=== PATIENT | female | born 1985 | race Caucasian/White ===

== ENCOUNTER → 2016-11-28 | Outpatient (CLI) | payer OTHER ==
[~2016-11-28] MED LIST: FRRS300 PO; PRENTAB26 PO
[2016-11-28 12:48] LABS: URINE APPEARANCE CLEAR (CLEAR); URINE BILIRUBIN NEG (NEG); URINE COLOR YELLOW; URINE NITRITE NEG (NEG); URINE SPECIFIC GRAVITY 1.017 (1.000-1.030); UROBILINOGEN NEG (NEG)
[2016-11-28 12:57] LABS: MANUAL MICROSCOPIC REQUIRED? NO; REVIEW REQ? NO
== END | disposition home or self-care (01) ==
LOC: C.LABSPEC 11:54
PROVIDERS: ATTEND Obstetrics & Gynecology
DX: O09.32 Supervision of pregnancy with insufficient antenatal care, second trimester (principal); Z3A.00 Weeks of gestation of pregnancy not specified

== ENCOUNTER → 2017-01-23 | Outpatient (CLI) | payer OTHER ==
[2017-01-23 15:42] LABS: HEMATOCRIT 30.5 % (37-47)
[2017-01-23 17:28] LABS: URINE APPEARANCE CLEAR (CLEAR); URINE BILIRUBIN NEG (NEG); URINE COLOR YELLOW; URINE EPITHELIAL CELL AUTO >30 /lpf (0-5); URINE NITRITE NEG (NEG); URINE SPECIFIC GRAVITY 1.012 (1.000-1.030); UROBILINOGEN NEG (NEG)
[2017-01-23 17:29] LABS: MANUAL MICROSCOPIC REQUIRED? NO; REVIEW REQ? NO
[2017-01-23 18:16] LABS: GTGD 50 Grams
== END | disposition home or self-care (01) ==
LOC: C.LAB1850 13:54
PROVIDERS: ATTEND Obstetrics & Gynecology
DX: O09.33 Supervision of pregnancy with insufficient antenatal care, third trimester (principal)

== ENCOUNTER → 2017-03-19 | Outpatient (CLI) | payer OTHER | END | disposition home or self-care (01) | LOC: C.LABSPEC 15:16 | PROVIDERS: ATTEND Obstetrics & Gynecology | DX: O09.33 Supervision of pregnancy with insufficient antenatal care, third trimester (principal) ==

== ENCOUNTER → 2017-04-10 | Outpatient (CLI) | payer OTHER ==
[2017-04-10 17:36] LABS: BASO % 0.2 %; BASO ABS # 0.02 K/uL (0-0.2); COMPLETE YES; EOS % 0.3 %; LYMPH % 21.5 %; LYMPH ABS # 2.24 K/uL (1.2-3.4); MEAN CELL VOLUME 83.5 fL (80-100); MEAN CORPUSCULAR HEMOGLOBIN 27.4 pg (25-34); MEAN CORPUSCULAR HGB CONC 32.8 g/dl (32-36); MEAN PLATELET VOLUME 12.8 fL (7.4-10.4); MONO % 8.7 %; NEUT % 68.3 %; PLATELET COUNT 210 K/uL (130-400); RED BLOOD COUNT 4.31 M/uL (4.2-5.4); WHITE BLOOD COUNT 10.43 K/uL (4.8-10.8)
[2017-04-10 17:57] LABS: URINE TOTAL PROTEIN 7.2 mg/dl (0-11.9)
[2017-04-10 17:59] LABS: AST/SGOT 10 U/L (15-37); CREATININE 0.53 mg/dl (0.60-1.20); URIC ACID 3.6 mg/dl (2.6-7.2)
[2017-04-10 18:02] LABS: URINE TOTAL PROTEIN CALC 165.6 mg/24 hr (0-149.1)
[2017-04-10 18:05] LABS: ALT/SGPT 19 U/L (12-78)
== END | disposition home or self-care (01) ==
LOC: C.LAB1850 16:19
PROVIDERS: ATTEND Obstetrics & Gynecology
DX: O16.9 Unspecified maternal hypertension, unspecified trimester (principal); Z3A.00 Weeks of gestation of pregnancy not specified

== ENCOUNTER 2017-04-14 03:06 | Inpatient (IN) | payer OTHER ==
[~2017-04-14] VITALS: Ht 167.6 cm; Wt 90.0 kg
[~2017-04-14 03:06] MED LIST changes: -FRRS300 PO
[2017-04-23] MEDS ORDERED: LACTATED RINGER'S 1000ML 1,000 ML IV PRN (08:19)
[2017-04-23] MEDS ORDERED: PENICILLIN G POTASSIUM IV 6 MU in DEXTROSE 5% 250ML 250 ML IV ONE (08:30)
[2017-04-23 08:38] LABS: HEMATOCRIT 33.6 % (37-47); MEAN CORPUSCULAR HEMOGLOBIN 27.7 pg (25-34); MEAN CORPUSCULAR HGB CONC 33.3 g/dl (32-36); MEAN PLATELET VOLUME 11.7 fL (7.4-10.4); PLATELET COUNT 194 K/uL (130-400); RED BLOOD COUNT 4.05 M/uL (4.2-5.4); WHITE BLOOD COUNT 9.69 K/uL (4.8-10.8)
[2017-04-23] MEDS: LACTATED RINGER'S 1000ML 1,000 ML IV SCH ×4 (08:48→20:49)
[2017-04-23] MEDS ORDERED: LACTATED RINGER'S 1000ML 500 ML IV PRN ×2 (09:11→14:24)
[2017-04-23] MEDS ORDERED: OXYTOCIN 30 UNITS/500ML NSS IV PRN ×2 (09:15→23:15)
[2017-04-23 09:32] VITALS: Ht 167.6 cm; Wt 90.0 kg
[2017-04-23] MEDS: PENICILLIN G POTASSIUM IV 3 MU in DEXTROSE 5% 100ML 100 ML IV PRN ×3 (12:42→20:49)
[2017-04-23] MEDS ORDERED: BUPIVACAINE 0.25% 30 ML VIAL ONE (13:40)
[2017-04-23] MEDS ORDERED: FENTANYL 2MCG/ML ROPIV 1.25MG/ML 100ML BAG EPI ONE (13:41)
[2017-04-23] MEDS ORDERED: EpHEDrine SULFATE INJ 50 MG/ML AMP ONE (13:41)
[2017-04-23] MEDS ORDERED: FENTANYL CITRATE INJ 50 MCG/1 ML 2 ML VIAL ONE (13:41)
[2017-04-23] MEDS ORDERED: ONDANSETRON INJ 2 MG/ML 2 ML VIAL IV PRN (14:30)
[2017-04-23] MEDS ORDERED: FENTANYL 2MCG/ML ROPIV 1.25MG/ML 100ML BAG EPI PRN (14:30)
[2017-04-23] MEDS ORDERED: NALOXONE HCL INJ 0.4 MG/1 ML VIAL/CARP IV PRN (14:30)
[2017-04-23] MEDS ORDERED: NALBUPHINE HCL INJ 10 MG/ML AMP IV PRN (14:30)
[2017-04-23] MEDS ORDERED: EpHEDrine SULFATE INJ 50 MG/ML AMP IV PRN (14:30)
[2017-04-23] MEDS ORDERED: DiphenhydrAMINE HCL 50 MG/ML VIAL IV PRN (14:30)
[2017-04-23] MEDS ORDERED: ACETAMINOPHEN 500 MG TAB PO STA (16:51)
[2017-04-23] MEDS ORDERED: HYDROCORTISONE ACETATE 25 MG SUPP PR PRN (23:15)
[2017-04-23] MEDS ORDERED: IBUPROFEN 600 MG TAB PO PRN (23:15)
[2017-04-23] MEDS ORDERED: ACETAMINOPHEN/CODEINE 300/30MG TAB PO PRN ×2 (23:15)
[2017-04-23] MEDS ORDERED: LANOLIN OINT EXT PRN ×2 (23:15)
[2017-04-23] MEDS ORDERED: BENZOCAINE 20% AER SPR 82.5 GM CAN EXT PRN (23:15)
[2017-04-23] MEDS ORDERED: SUPERCREAM 0.870 % 15GM JAR EXT PRN (23:15)
[2017-04-23] MEDS ORDERED: DIPHTHERIA/TETANUS/PERTUSSIS 0.5 ML SYR/VIAL IM. ONE (23:15)
[2017-04-23] MEDS ORDERED: ACETAMINOPHEN 325 MG TAB PO PRN (23:15)
[2017-04-23] MEDS ORDERED: OXYCODONE/ACETAMINOPHEN 5-325 TAB PO PRN (23:15)
--- NOTE | 2017-04-24 00:47 | DELIVERY SUMMARY ---
DATE OF OPERATION: 04/23/2017 PREOPERATIVE DIAGNOSES: 1. Intrauterine at 41+ weeks. POSTOPERATIVE DIAGNOSES: Same. PROCEDURES: 1. Epidural anesthesia. 2. Amniotomy. 3. External scalp electrode. 4. Pitocin augmentation. 5. Normal spontaneous vaginal delivery. SURGEON: Dr. Hartley. ANESTHESIA: Epidural. ESTIMATED BLOOD LOSS: 300 mL. PROCEDURE: Mark presented to labor and delivery this morning for her postdates induction. She had a Bhatt catheter placed last night, which fell out at midnight. She was 3+, 80%, -2. She underwent Pitocin augmentation and when got into a good contraction pattern, she underwent an epidural anesthesia. Shortly thereafter, she underwent rupture of membranes. This was at 4 cm dilated. As she progressed from 4 to complete, she had intermittent Pitocin augmentation. She had this intermittently shut off when the baby had some deep variables with contractions. The baby had a category 2 strip with good variability and good return to baseline and positive scalp stim. It did have intermittent deep variable/early with contractions. She then progressed to complete and +2 station, labored down for an hour and then pushed for approximately 10 minutes to deliver a viable male infant in MICHAEL presentation. There was no nuchal cord. The nose and mouth were bulb suctioned. The rest of the baby was then delivered without difficulty. The infant was placed on the maternal abdomen for drying and attention. The cord was clamped and cut at 1 minute of life. Cord blood and segment were obtained. Placenta was delivered spontaneously, intact with a 3-vessel cord. Cervix, sulci, perineum and rectum were all examined and found to be intact. Bilateral labial splits in the skin were reapproximated with 4-0 Vicryl and one kkyvze-ey-jdotq suture was placed at the hymenal ring for a bleeding area at 7 o'clock. Hemostasis was obtained with dilute Pitocin and fundal massage. is pending. Mother and baby are doing well at the end of this delivery. I attest to the content of the Intraoperative Record and any orders documented therein. Any exception s are noted below.
[2017-04-24 04:00] VITALS: BP 126/73; PULSE 92; TEMP 37; O2SAT 96
[2017-04-24 06:22] LABS: HEMATOCRIT 30.2 % (37-47)
--- NOTE | 2017-04-24 06:59 | Progress Note ---
Subjective Apr 24, 2017. Subjective conversation w/ patient, physical exam, lab review Ambulation: ambulating normally Voiding: no voiding problems Passing Gas: Yes Diet Tolerance: Regular Diet Lochia: Small Feeding Type: Breast Feeding Pain: controlled Objective Vital Signs Date Time Temp Pulse Resp B/P (MAP) Pulse Ox O2 Delivery O2 Flow Rate FiO2 04/24/17 04:00 37.0 92 18 126/73 (90) 96 Room Air 04/24/17 04:00 Room Air Physical Exam General Appearance: WELL-APPEARING, WD/WN, NO APPARENT DISTRESS Abdomen: non tender, soft Fundus: Firm, Non-Tender, Relation to Umbilicus (at u) Extremities: non-tender, normal inspection, no pedal edema Laboratory Results Last 24 Hours Test 04/23/17 08:29 04/24/17 06:11 White Blood Count 9.69 K/uL Red Blood Count 4.05 M/uL Hemoglobin 11.2 g/dL 9.7 g/dL Hematocrit 33.6 % 30.2 % Mean Corpuscular Volume 83.0 fL Mean Corpuscular Hemoglobin 27.7 pg Mean Corpuscular Hemoglobin Concent 33.3 g/dl RDW Standard Deviation 42.5 fL RDW Coefficient of Variation 14.1 % Platelet Count 194 K/uL Mean Platelet Volume 11.7 fL Assessment and Plan Problem List Medical Problems: (1) Adjustment disorder Status: Acute (2) Anxiety Status: Acute (3) First trimester Status: Acute (4) History of depression Status: Acute (5) Hypokalemia Status: Acute (6) Polysubstance abuse Status: Acute Post- Day#: 1 Continue Routine Care: Doing well. Routine care. We notified CYS as per fax. Patient is aware.
[2017-04-24] MEDS: PRENATAL VITAMIN TAB PO SCH (08:45)
[2017-04-24] MEDS: DOCUSATE SODIUM 100 MG CAP PO SCH ×2 (08:45→20:23)
--- NOTE | 2017-04-24 08:47 | Anesthesia Procedure Note ---
Anesthesia Epidural Removal Nt Date & Time Apr 24, 2017 at 08:47 Vital Signs Pain Intensity: 0.0 Vital Signs Past 12 Hours Date Time Temp Pulse Resp B/P (MAP) Pulse Ox O2 Delivery O2 Flow Rate FiO2 04/24/17 04:00 37.0 92 18 126/73 (90) 96 Room Air 04/24/17 04:00 Room Air Notes Mental Status: alert / awake / arousable, participated in evaluation Nausea / Vomiting: adequately controlled Pain: adequately controlled Airway Patency, RR, SpO2: stable & adequate BP & HR: stable & adequate Hydration State: stable & adequate Neuraxial Anesthesia: was administered, sensory block is resolved Anesthetic Complications: no major complications apparent, pt satisfied with anesthetic care Epidural: removed without complications, with tip intact
[2017-04-24 09:13] VITALS: BP 120/80; PULSE 80; TEMP 37; O2SAT 99
[2017-04-24 12:40] VITALS: BP 121/80; PULSE 96; TEMP 36.9
[2017-04-24 15:55] VITALS: BP 120/71; PULSE 88; TEMP 37.2
[2017-04-24 21:20] VITALS: BP 122/72; PULSE 92; TEMP 37
[2017-04-25 00:20] VITALS: BP 106/58; PULSE 91; TEMP 37.1
--- NOTE | 2017-04-25 07:36 | Progress Note ---
Subjective Apr 25, 2017. Subjective conversation w/ patient, physical exam Ambulation: ambulating normally Voiding: no voiding problems Passing Gas: Yes Diet Tolerance: Regular Diet Lochia: Small Feeding Type: Breast Feeding Review of Systems Constitutional: No fever, No chills, No sweats, No weight loss, No weakness, No fatigue, No problem reported Abdomen: No pain, No nausea, No vomiting, No diarrhea, No constipation, No GI bleeding, No problem reported Female : No see HPI, No dysuria, No urinary frequency, No hematuria, No incontinence, No abnormal vaginal bleeding, No vaginal discharge, No problem reported Objective Vital Signs Date Time Temp Pulse Resp B/P (MAP) Pulse Ox O2 Delivery O2 Flow Rate FiO2 04/25/17 00:20 37.1 91 14 106/58 (74) Room Air 04/25/17 00:20 Room Air 04/24/17 21:20 37.0 92 20 122/72 (89) Room Air 04/24/17 15:55 37.2 88 16 120/71 (87) Room Air 04/24/17 15:55 Room Air 04/24/17 12:40 36.9 96 18 121/80 (94) 04/24/17 09:13 37.0 80 20 120/80 (93) 99 Room Air 04/24/17 08:50 Room Air Physical Exam General Appearance: WELL-APPEARING, NO APPARENT DISTRESS Abdomen: non tender, soft Fundus: Firm, Non-Tender, Relation to Umbilicus (2 below U) Extremities: no calf tenderness Assessment and Plan Problem List Medical Problems: (1) Adjustment disorder Status: Acute (2) Anxiety Status: Acute (3) First trimester Status: Acute (4) History of depression Status: Acute (5) Hypokalemia Status: Acute (6) Polysubstance abuse Status: Acute Post- Day#: 2 Continue Routine Care: stable course CYS involved because of (+) drug screen done prior to her care with us Hgb 9.7 start ferrous sulfate 1 tablet daily with PNV discharge to home follow up in 6 weeks
[2017-04-25 07:45] VITALS: BP 103/62; PULSE 91; TEMP 36.6
[2017-04-25] MEDS ORDERED: FERROUS SULFATE 325 MG TAB PO SCH (08:00)
[2017-04-25] MEDS ORDERED: FRRS300 PO (08:08)
--- NOTE | 2017-04-25 08:12 | Discharge Instructions ---
Discharge Instructions Date of Service Apr 25, 2017. Admission Reason for Admission: Induction Discharge Discharge Diagnosis / Problem: recovery frome normal delivery Discharge Goals Goal(s): Routine recovery after delivery Medications Continue Dispensed Medications: supercream, dermaplast, tucks, lansinoh Activity Recommendations Activity Limitations: per Instructions/Follow-up section . Instructions / Follow-Up Instructions / Follow-Up ACTIVITY RECOMMENDATIONS: * Gradual return to full activity over the next 2-3 weeks. * No lifting - nothing heavier than baby over the next 2-3 weeks. * Do not engage in vigorous exercise, sexual activity or sports until cleared by your physician. * Do not drive or operate any motorized equipment until cleared by your physician. * You may shower/bathe daily. MEDICATIONS: For discomfort or pain, you may use Acetaminophen (Tylenol), Ibuprofen (Advil), or Naproxen (Aleve) following the package directions. For constipation you may use Colace following the package directions. BREAST CARE: If you are not breast feeding: * Wear a supportive bra 24 hours a day for one to two weeks. * Avoid stimulating your breasts and nipples as much as possible during the first few weeks after delivery. * When taking a shower, have the warm water hit your back, not breasts. * When your breasts feel full, apply ice packs. Usually three to four times a day helps ease the discomfort. * Take a mild pain medication (Tylenol / Motrin) when you are uncomfortable. If breast feeding: * Use breast milk to lubricate nipples. Lansinoh cream may be used for sore nipples. You do not need to remove cream prior to breast feeding. If using a different brand of cream, check the label for directions regarding removal of cream prior to nursing. * Wear a supportive bra. * If having problems with breasts or breast feeding, call a erp implementation consultant or your health care provider. EPISIOTOMY CARE: After delivery, if you have an episiotomy (stitches), the following steps will ease discomfort and aid healing. * For the first 24 hours after delivery, place ice packs next to your episiotomy to help reduce swelling. * After the first 24 hour-period, sitz baths, either portable or in the tub, are suggested. A shower with a shower arm sprayed over the episiotomy may be comforting. * Evangelina care should be done after each voiding and bowel movement. Squirt warm water from a plastic bottle over the perineum (region of the body between the anus and urinary opening) and pat dry. * Use Dermoplast to ease discomfort. Shake container. [place] directly over the episiotomy. Place a Tucks on a clean sanitary pad next to your episiotomy. SPECIAL CARE INSTRUCTIONS: When you are discharged from the hospital, it is important for you to follow the instructions listed below: * During the first week at home, you should be able to care for yourself and your baby. In addition, the usual light household activities are encouraged. * Limit your activities to the way you feel. Do not try to clean the house or move furniture. Be sensible. * If you actively engage in sports and have done so up until the time of your delivery, you may resume these activities as soon as you feel able. This may take up to one month or even longer. Use good judgment. * Continue to take your vitamins for at least six weeks after the of your baby. * Your diet need not be limited unless you were on a special diet before your delivery. Breast-feeding mothers need around 2500 calories per day and at least 64-80 ounces of fluid per day (8 to 10 glasses). * You should eat foods from the four major food groups. Crash diets or fad diets are to be avoided. Eating lean meats, fresh fruits and vegetables, low-fat dairy products, high fiber foods and a regular exercise program, will help you get back to your pre- weight without putting your health at risk. * Constipation is sometimes a problem after delivery. Take a mild laxative as needed. If breast feeding, Milk of Magnesia is acceptable to use. You may use a suppository or Fleets enema if no episiotomy. * A daily shower or tub bath is suggested. Be sure to thoroughly and gently dry the perineum. * A bloody vaginal discharge will usually continue until around four weeks post . A small amount of bleeding may continue for as long as six weeks. Vaginal discharge changes from the bright red bleeding after delivery to pink then brownish and finally yellowish-pink before becoming white and disappearing. * Bleeding may increase with activity. Your first period may come in 4-8 weeks. If you are breast feeding, your period may be delayed even longer. * [place] (sex) can begin whenever both you and your partner feel comfortable and do not have any form of genital infection. It is recommended that you wait at least six weeks for internal and external healing to occur. If you have questions, please talk to your health care practitioner. A condom should be used to prevent infection and . * Foreplay, gentle intercourse and lubrication is very important the first several times to prevent pain. A water-based lubricant such as K-Y jelly or Astroglide may be used. * If you have RH negative blood and your baby is RH positive, you will receive RHOGAM by injection prior to discharge. The nurse will give you a card to keep with you that has the date and place that you received RHOGAM after delivery. * During your care, you had a Rubella screen done to check for the presence of rubella antibodies in your blood. If your test was negative, you will receive a Rubella vaccine prior to discharge. This vaccine may cause a fever, soreness at the injection site and flu-like symptoms. If these symptoms persist, notify your health care practitioner. is not advised for one month after a Rubella vaccine. * Verbalizes understanding of car seat law as reviewed with patient nursing. * Car Seat hand-out given and reviewed with patient by nursing. * Shaken baby information reviewed with patient by nursing. Call you doctor if: * Heavy bleeding (saturating several pads an hour) or passing clots the size of your fist. * A fever >101 degrees F (38.3 degrees C) on two occasions four hours apart and /or chills. * Unusual pain in the pelvic or vaginal areas. * "Baby Blues" lasting longer than two weeks. If you have any questions or concerns, call your health care practitioner at . FOLLOW UP VISIT: * Please call the office at to schedule a 6 week examination. It is important you keep this appointment. It is important for you to make arrangements for either yearly or twice yearly check-ups thereafter. Current Hospital Diet Patient's current hospital diet: Regular OB Diet Discharge Diet Recommended Diet: Regular OB Diet Pending Studies Studies pending at discharge: no Medical Emergencies . Who to Call and When: Medical Emergencies: If at any time you feel your situation is an emergency, please call [phone] immediately. . Non-Emergent Contact Non-Emergency issues call your: Test Desk Operator . . "Provider Documentation" section prepared by Meeta Stevens. . VTE Core Measure Inpt VTE Proph given/why not?: Treatment not indicated
[2017-04-25] MEDS: PRENATAL VITAMIN TAB PO SCH (08:36)
[2017-04-25] MEDS: DOCUSATE SODIUM 100 MG CAP PO SCH ×2 (08:36→19:28)
[2017-04-25 15:30] VITALS: BP 127/75; PULSE 90; TEMP 36.7
[2017-04-25 19:33] VITALS: BP_DIAS 75; PULSE 91; TEMP 36.7
== END 2017-04-25 19:50 | disposition home or self-care (01) | DRG 775 ==
LOC: C.LD 04-23 07:39 → C.OBG 04-24 01:54
PROVIDERS: ADMIT Obstetrics & Gynecology; ATTEND Obstetrics & Gynecology
PROC: 4A1H7CZ Monitoring of Products of Conception, Cardiac Rate, Via Natural or Artificial Opening (ICD-10-PCS; principal; 2017-04-23)
PROC: 10H073Z Insertion of Monitoring Electrode into Products of Conception, Via Natural or Artificial Opening (ICD-10-PCS; principal; 2017-04-23)
PROC: 0HQ9XZZ Repair Perineum Skin, External Approach (ICD-10-PCS; principal; 2017-04-23)
PROC: 3E033GC Introduction of Other Therapeutic Substance into Peripheral Vein, Percutaneous Approach (ICD-10-PCS; principal; 2017-04-23)
PROC: 10E0XZZ Delivery of Products of Conception, External Approach (ICD-10-PCS; principal; 2017-04-23)
DX: O48.0 Post-term pregnancy (principal); O70.0 First degree perineal laceration during delivery; O76 Abnormality in fetal heart rate and rhythm complicating labor and delivery; Z3A.41 41 weeks gestation of pregnancy; Z37.0 Single live birth; Z22.330 Carrier of Group B streptococcus

== ENCOUNTER → 2017-10-21 | Outpatient (CLI) | payer OTHER ==
[~2017-10-21] MED LIST changes: +FRRS300 PO
[2017-10-21 14:34] LABS: URINE APPEARANCE CLEAR (CLEAR); URINE BILIRUBIN NEG (NEG); URINE COLOR YELLOW; URINE NITRITE NEG (NEG); UROBILINOGEN NEG (NEG)
[2017-10-21 14:44] LABS: MANUAL MICROSCOPIC REQUIRED? NO; REVIEW REQ? NO
== END | disposition home or self-care (01) ==
LOC: C.LABSPEC 13:34
PROVIDERS: ATTEND Obstetrics & Gynecology
DX: O09.899 Supervision of other high risk pregnancies, unspecified trimester (principal)

== ENCOUNTER → 2017-10-22 | Outpatient (CLI) | payer OTHER ==
[2017-10-26 07:21] LABS: CHLAMYDIA TRACH RNA*** NOT DETECTED (NOT DETECTED); GC (NEIS GONORRHOEAE)RNA** NOT DETECTED (NOT DETECTED)
== END | disposition home or self-care (01) ==
LOC: C.LABSPEC 17:36
PROVIDERS: ATTEND Obstetrics & Gynecology
DX: Z34.92 Encounter for supervision of normal pregnancy, unspecified, second trimester (principal)

== ENCOUNTER → 2017-10-27 | Outpatient (CLI) | payer OTHER ==
[2017-10-27 14:45] LABS: BASO % 0.1 %; BASO ABS # 0.01 K/uL (0-0.2); COMPLETE YES; EOS % 0.4 %; HEMATOCRIT 33.2 % (37-47); IG% 0.3 %; LYMPH % 24.5 %; LYMPH ABS # 1.71 K/uL (1.2-3.4); MEAN CELL VOLUME 84.1 fL (80-100); MEAN CORPUSCULAR HEMOGLOBIN 28.1 pg (25-34); MEAN CORPUSCULAR HGB CONC 33.4 g/dl (32-36); MEAN PLATELET VOLUME 11.4 fL (7.4-10.4); NEUT % 68.7 %; PLATELET COUNT 191 K/uL (130-400); RED BLOOD COUNT 3.95 M/uL (4.2-5.4); WHITE BLOOD COUNT 6.98 K/uL (4.8-10.8)
[2017-10-27 18:00] LABS: GTGD 50 Grams
== END | disposition home or self-care (01) ==
LOC: C.LAB1850 11:56
PROVIDERS: ATTEND Obstetrics & Gynecology
DX: Z34.92 Encounter for supervision of normal pregnancy, unspecified, second trimester (principal)

== ENCOUNTER → 2018-01-12 | Outpatient (CLI) | payer OTHER ==
[2018-01-12 13:34] LABS: HEMATOCRIT 32.9 % (37-47); HEMOGLOBIN 11.3 g/dL (12.0-16.0)
== END | disposition home or self-care (01) ==
LOC: C.LAB1850 10:54
PROVIDERS: ATTEND Obstetrics & Gynecology
DX: Z34.93 Encounter for supervision of normal pregnancy, unspecified, third trimester (principal); Z3A.00 Weeks of gestation of pregnancy not specified

== ENCOUNTER → 2018-03-16 | Outpatient (CLI) | payer OTHER | END | disposition home or self-care (01) | LOC: C.LABSPEC 11:10 | PROVIDERS: ATTEND Obstetrics & Gynecology | DX: Z34.93 Encounter for supervision of normal pregnancy, unspecified, third trimester (principal) ==

== ENCOUNTER 2019-12-05 07:45 | Inpatient (IN) ==
[2019-12-05] MEDS ORDERED: OXYTOCIN 30 UNITS/500 ML BAG IV PRN ×2 (07:55)
[2019-12-05 08:15] LABS: Hematocrit (blood only) 31.2 % (37-47); Hemoglobin 10.2 g/dL (12.0-16.0); Mean Corpuscular Hemoglobin 26.1 pg (25-34); Mean Corpuscular Volume 79.8 fL (80-100); Mean Platelet Volume 10.8 fL (7.4-10.4); Platelet Count 198 K/uL (130-400); RDW Coefficient of Variation 16.8 % (11.5-14.5); RDW Standard Deviation 48.6 fL (36.4-46.3); Red Blood Count 3.91 M/uL (4.2-5.4); White Blood Count 7.37 K/uL (4.8-10.8)
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
[2019-12-05 08:30] LABS: Mean Corpuscular Hgb Conc 32.7 g/dL (32-36)
[2019-12-05] MEDS: LACTATED RINGER'S 1,000 ML IV PRN ×3 (09:01→16:15)
[2019-12-05 09:22] LABS: Amphetamines+Metham, Urine Neg (Neg); Barbiturates, Urine Neg (Neg); Benzodiazepine, Urine Neg (Neg); Cocaine, Urine Neg (Neg); MDMA (Ecstacy), Urine Neg (Neg); Methadone, Urine Neg (Neg); Opiate, Urine Neg (Neg); Phencyclidine, Urine Neg (Neg)
[2019-12-05] MEDS ORDERED: fentaNYL citrate 100 MCG/2 ML VIAL ONE (10:17)
[2019-12-05] MEDS ORDERED: ePHEDrine sulfate 50 MG/ML AMP ONE (10:17)
[2019-12-05] MEDS ORDERED: BUPIVACAINE 0.25% 30 ML VIAL ONE (10:17)
[2019-12-05] MEDS ORDERED: fentaNYL 2MCG/ML ROPIV 1.25MG/ML 100 ML BAG EPI ONE (10:18)
[2019-12-05] MEDS ORDERED: NALOXONE HCL 1 MG in SODIUM CHLORIDE 0.9% 1000ML 1,000 ML IV PRN (10:43)
[2019-12-05] MEDS ORDERED: ePHEDrine sulfate 50 MG/ML AMP IV PRN (10:43)
[2019-12-05] MEDS ORDERED: NALOXONE HCL 0.4 MG/1 ML VIAL/CARP IV PRN (10:43)
[2019-12-05] MEDS ORDERED: DiphenhydrAMINE HCL 50 MG/ML VIAL IV PRN (10:43)
[2019-12-05] MEDS ORDERED: NALBUPHINE HCL INJ 10 MG/ML AMP IV PRN (10:43)
[2019-12-05] MEDS ORDERED: fentaNYL 2MCG/ML ROPIV 1.25MG/ML 100 ML BAG EPI PRN (10:43)
[2019-12-05] MEDS ORDERED: ONDANSETRON INJ 2 MG/ML 2 ML VIAL IV PRN (10:43)
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
[2019-12-05] MEDS ORDERED: ACETAMINOPHEN 325 MG TAB PO PRN ×2 (16:17→18:33)
[2019-12-05] MEDS ORDERED: ACETAMINOPHEN 325 MG TAB ONE (16:18)
--- NOTE | 2019-12-05 17:59 | Delivery Summary ---
Vaginal Delivery Summary Date of Service December 05, 2019 Vaginal Delivery Summary DIAGNOSES: 1. [place] intrauterine at 40+ wks gestation. 2. Induction of labor. 3. Group B Streptococcus Neg. PROCEDURE: Spontaneous vaginal delivery without laceration. SURGEON: Marycarmen Donohue MD. EDGING SUPERVISOR: None. ESTIMATED BLOOD LOSS: 250 mL. COMPLICATIONS: None. PLACENTA: Spontaneous and intact with a 3-vessel cord. DISPOSITION: Stable to labor and delivery. DESCRIPTION: The patient pushed well and brought the head to in OA position. The 's head was allowed to deliver with contraction force and no further active pushing, with the perineum protected during this time. The shoulders delivered easily with a maternal pushing effort. There was no nuchal cord. The right shoulder was anterior. The shoulders and body delivered without any difficulty, and the infant was placed on the maternal abdomen. It was vigorous and moving all extremities, and making respiratory efforts. The cord was doubly clamped by the MD and then cut by the patient's mother. The placenta delivered spontaneously and was noted to be intact and with a 3VC. The cervix, vagina and perineum were examined and were found to be without defect requiring repair. The fundus was firm and lochia minimal immediately after delivery.
[2019-12-05] MEDS ORDERED: OXYCODONE/ACETAMINOPHEN 5mg/325mg TAB PO PRN (18:33)
[2019-12-05] MEDS ORDERED: SUPERCREAM 0.870% 15 GM JAR EXT PRN (18:33)
[2019-12-05] MEDS ORDERED: LACTATED RINGER'S 1,000 ML IV SCH (18:33)
[2019-12-05] MEDS ORDERED: BENZOCAINE 20% AER SPR 82.5 GM CAN EXT PRN (18:33)
[2019-12-05] MEDS ORDERED: DIPHTHERIA/TETANUS/PERTUSSIS 0.5 ML SYR/VIAL IM ONE (18:33)
[2019-12-05] MEDS ORDERED: HYDROCORTISONE ACETATE 25 MG SUPP PR PRN (18:33)
--- NOTE | 2019-12-05 19:17 | Anesthesia Procedure Note ---
Date of Service December 05, 2019 Anesthesia Post Epidural Note Vital Signs Vital Signs: Temp Pulse Resp BP Pulse Ox 36.7 C 76 18 134/67 97 12/05/19 18:10 12/05/19 19:02 12/05/19 18:55 12/05/19 19:02 12/05/19 17:59 Notes Mental Status: alert / awake / arousable Nausea / Vomiting: adequately controlled Pain: adequately controlled Airway Patency, RR, SpO2: stable & adequate BP & HR: stable & adequate Hydration State: stable & adequate Neuraxial Anesthesia: was administered and sensory block is resolving Anesthetic Complications: no major complications apparent and Pt Satisfied with anesthetic care Epidural: Removed without complications and With tip intact
[2019-12-05] MEDS: AMOXICILLIN 500 MG CAP PO SCH (20:56)
[2019-12-05] MEDS: IBUPROFEN 600 MG TAB PO PRN (21:00)
[2019-12-05] MEDS: DOCUSATE SODIUM 100 MG CAP PO SCH (21:30)
--- NOTE | 2019-12-06 06:04 | Obstetrical Progress Note ---
Date of Service <Baylee Dugan - Last Filed: 12/06/19 06:51> December 06, 2019 Assessment & Plan <Baylee Dugan - Last Filed: 12/06/19 06:51> (1) Elective induction of labor planned: 34 yo F @ 40 and 4/7 weeks PMHx polysubstance abuse, depression PPD #1 following at 40w4d. - Feels well this AM and without complaints. - UDS yesterday was negative. - Blood type O+, Ab screen negative, Rubella immune. - Continue amoxicillin 500mg TID; pt on day 4 of therapy for acute sinusitis. - For discharge tomorrow. Following discharge will require 6 week follow up with Dr. Donohue. (2) History of substance abuse: (3) Depression: Subjective <Baylee Dugan - Last Filed: 12/06/19 06:51> Mark is a 34 yo female ; PPD # 1 following vaginal delivery at 40w4d; doing well this AM; no abdominal cramping/pain; voiding well; tolerating meals overnight, able to ambulate some within the room. Some spotting this morning but improved from yesterday. No dizziness or headache. Pt is breast feeding and for the most part has been successful; Baby Hope was tired while feeding early this AM and kept dozing off while feeding but feeds before and after that have had good latch. Review of Systems Constitutional: denies fever, chills, sweats, headache Respiratory: denies SOB, difficulty breathing Cardiac: denies CP, chest palpitations, chest pressure Breast: denies breast pain : denies dysuria Physical Exam <Baylee Crawfordsergio - Last Filed: 12/06/19 06:51> General: patient is alert and oriented, in NAD Cardiac: +S1/S2, no murmurs rubs or gallops Respiratory: lungs CTA b/l, anteriorly and posteriorly, no wheezes rales or rhonchi, no increased work of breathing, symmetric chest rise, no respiratory distress Abdomen: soft, NT, +bowel sounds Uterus: uterine fundus firm, palpable at the level of the umbilicus Lower Extremities: no LE edema or swelling, no deep calf pain, Mattie's sign negative b/l Results & Data <Baylee Ritchie, DO - Last Filed: 12/06/19 06:51> Vital Signs (Past 12 Hours) Vital Signs Temp Pulse Pulse Resp BP BP Pulse Ox 12/06/19 04:35 36.5 C 69 16 105/66 12/06/19 00:01 36.7 C 80 18 119/71 12/05/19 20:01 90 133/66 12/05/19 19:46 88 133/64 12/05/19 19:40 36.9 C 18 12/05/19 19:31 94 H 147/72 H 12/05/19 19:17 89 143/67 H 12/05/19 19:10 18 12/05/19 19:02 76 134/67 12/05/19 18:55 76 18 12/05/19 18:47 88 153/70 H 12/05/19 18:40 20 12/05/19 18:31 81 143/79 H 12/05/19 18:25 18 12/05/19 18:16 86 152/85 H 12/05/19 18:10 36.7 C 20 12/05/19 18:02 87 149/86 H 12/05/19 17:59 92 H 97 Laboratory Results Laboratory Results - last 24 hr 12/05/19 12/05/19 08:00 08:02 WBC 7.37 RBC 3.91 L Hgb 10.2 L Hct 31.2 L MCV 79.8 L MCH 26.1 MCHC 32.7 RDW Std Deviation 48.6 H RDW Coeff of [place] 16.8 H Plt Count 198 MPV 10.8 H Urine Opiates Screen Neg Ur Methadone, Qual Neg Urine Barbiturates Neg Ur Phencyclidine (PCP) Neg U Amphetamin/Meth Scrn Neg MDMA (Ecstasy) Screen Neg U Benzodiazepines Scrn Neg Ur Cocaine Metabolite Neg U Marijuana (THC) Screen Neg Medications Administered Current Medications Acetaminophen (Tylenol) 650 mg PO Q6H PRN PRN Reason: Pain/LAN/Fever Stop: 01/04/20 18:32 Amoxicillin (Amoxil) 500 mg PO TID [facility] Stop: 12/15/19 20:59 Last Admin: 12/05/19 20:56 Dose: 500 mg Documented by: Benzocaine (Dermoplast Pain Relieving [place]) 1 appln EXT PRN PRN PRN Reason: Perineal Discomfort Stop: 01/04/20 18:32 Last Admin: 12/05/19 20:56 Dose: 82.5 appln Documented by: Cocaine HCl (Supercream 0.870%) 1 gm EXT BID PRN PRN Reason: Hemorrhoidal Inflammation Stop: 12/19/19 18:32 Last Admin: 12/05/19 20:56 Dose: 15 gm Documented by: Docusate Sodium (Colace) 100 mg PO DAILY@08,21 [facility] Stop: 01/04/20 20:59 Last Admin: 12/05/19 21:30 Dose: Not Given Documented by: Hydrocortisone (Anusol Hc) 25 mg [place] BID PRN PRN Reason: Hemorrhoidal Inflammation Stop: 01/04/20 18:32 Oxytocin (Pitocin) 30 units in 500 mls @ 333.333 mls/hr IV .Q1H30M PRN; Protocol PRN Reason: Bleeding Control Stop: 01/04/20 07:54 Last Admin: 12/05/19 18:53 Dose: 20 units/hr, 333.3 mls/hr Documented by: Lactated Ringer's (Lr) 1,000 mls @ 125 mls/hr IV .Q8H [facility] Stop: 01/04/20 18:32 Ibuprofen (Motrin) 600 mg PO Q4H PRN PRN Reason: Pain/LAN/Cramping/Fever Stop: 01/04/20 18:32 Last Admin: 12/05/19 21:00 Dose: 600 mg Documented by: Oxycodone/Acetaminophen (Percocet 5mg/325mg) 1 tab PO Q4H PRN PRN Reason: Pain not relieved by... Stop: 12/19/19 18:32 Prenat Multivit/[place]/Iron/Folic Ac ( Vitamin) 1 tab PO DAILY@08 [facility] Stop: 01/05/20 07:59 <Marycarmen Donohue MD - Last Filed: 12/06/19 06:23> Co-Signing Physician Notes I have reviewed the resident's note and examined the patient myself, and agree with the note above. Resident Activity Tracking <Baylee Dugan DO - Last Filed: 12/06/19 06:51> Resident Involvement: Resident Care Provided Care Provided: OB Delivery <Marycarmen Donouhe MD - Last Filed: 12/06/19 06:23> Resident Involvement: Resident Care Provided Care Provided: OB Delivery
[2019-12-06 06:51] LABS: Hematocrit (blood only) 28.2 % (37-47); Hemoglobin 9.1 g/dL (12.0-16.0); Mean Corpuscular Hemoglobin 26.1 pg (25-34); Mean Corpuscular Hgb Conc 32.3 g/dL (32-36); Mean Corpuscular Volume 80.8 fL (80-100); Mean Platelet Volume 10.4 fL (7.4-10.4); Platelet Count 179 K/uL (130-400); RDW Coefficient of Variation 17.1 % (11.5-14.5); RDW Standard Deviation 50.2 fL (36.4-46.3); Red Blood Count 3.49 M/uL (4.2-5.4); White Blood Count 6.41 K/uL (4.8-10.8)
[2019-12-06] MEDS: PRENATAL VITAMIN 1 TAB PO SCH (07:53)
[2019-12-06] MEDS: IBUPROFEN 600 MG TAB PO PRN ×3 (07:53→20:09)
[2019-12-06] MEDS: DOCUSATE SODIUM 100 MG CAP PO SCH ×2 (07:53→20:09)
[2019-12-06] MEDS: AMOXICILLIN 500 MG CAP PO SCH ×3 (08:40→20:10)
--- NOTE | 2019-12-07 06:34 | Obstetrical Progress Note ---
Date of Service <Baylee Dugan DO - Last Filed: 12/07/19 06:59> December 07, 2019 Assessment & Plan <Baylee Dugan DO - Last Filed: 12/07/19 06:59> (1) Elective induction of labor planned: 34 yo F @ 40 and 4/7 weeks PMHx polysubstance abuse, depression PPD #2 following at 40w4d. - Feels well this AM and without complaints. - UDS this admission was negative. No barrier to Baby Hope going home. - Continue home amoxicillin prescription to complete 10 days of therapy as prescribed for acute sinusitis. - For discharge today. Following discharge will require 6 week follow up with Dr. Donohue. - Discussed discharge instructions and answered all pt questions. (2) History of substance abuse: (3) Depression: Subjective <Baylee Dugan DO - Last Filed: 12/07/19 06:59> Mark is a 34 yo PMHx polysubstance abuse and depression; PPD # 2 following vaginal delivery at 40w4d; doing well this AM; no abdominal cramping/pain; voiding well; tolerating meals overnight, able to ambulate some within the room. No dizziness or headache. Pt is breast feeding. Review of Systems Constitutional: denies fever, chills, sweats, headache Respiratory: denies SOB, difficulty breathing Cardiac: denies CP, chest palpitations, chest pressure Breast: denies breast pain : denies dysuria Physical Exam <Baylee Dugan DO - Last Filed: 12/07/19 06:59> General: patient is alert and oriented, in NAD Cardiac: +S1/S2, no murmurs rubs or gallops Respiratory: lungs CTA b/l, anteriorly and posteriorly, no wheezes rales or rhonchi, no increased work of breathing, symmetric chest rise, no respiratory distress Abdomen: soft, NT, +bowel sounds Uterus: uterine fundus firm, palpable at the level of the umbilicus Lower Extremities: no LE edema or swelling, no deep calf pain, Mattie's sign negative b/l Results & Data <Baylee Dugan DO - Last Filed: 12/07/19 06:59> Vital Signs (Past 12 Hours) Vital Signs Temp Pulse Resp BP Pulse Ox 12/07/19 00:30 36.5 C 83 18 132/77 99 Medications Administered Current Medications Acetaminophen (Tylenol) 650 mg PO Q6H PRN PRN Reason: Pain/LAN/Fever Stop: 01/04/20 18:32 Amoxicillin (Amoxil) 500 mg PO TID [facility] Stop: 12/15/19 20:59 Last Admin: 12/06/19 20:10 Dose: 500 mg Documented by: Benzocaine (Dermoplast Pain Relieving [place]) 1 appln EXT PRN PRN PRN Reason: Perineal Discomfort Stop: 01/04/20 18:32 Last Admin: 12/05/19 20:56 Dose: 82.5 appln Documented by: Cocaine HCl (Supercream 0.870%) 1 gm EXT BID PRN PRN Reason: Hemorrhoidal Inflammation Stop: 12/19/19 18:32 Last Admin: 12/05/19 20:56 Dose: 15 gm Documented by: Docusate Sodium (Colace) 100 mg PO DAILY@08,21 [facility] Stop: 01/04/20 20:59 Last Admin: 12/06/19 20:09 Dose: 100 mg Documented by: Hydrocortisone (Anusol Hc) [address] BID PRN PRN Reason: Hemorrhoidal Inflammation Stop: 01/04/20 18:32 Oxytocin (Pitocin) 30 units in 500 mls @ 333.333 mls/hr IV .Q1H30M PRN; Protocol PRN Reason: Bleeding Control Stop: 01/04/20 07:54 Last Admin: 12/05/19 18:53 Dose: 20 units/hr, 333.3 mls/hr Documented by: Lactated Ringer's (Lr) 1,000 mls @ 125 mls/hr IV .Q8H [facility] Stop: 01/04/20 18:32 Ibuprofen (Motrin) 600 mg PO Q4H PRN PRN Reason: Pain/LAN/Cramping/Fever Stop: 01/04/20 18:32 Last Admin: 12/06/19 20:09 Dose: 600 mg Documented by: Oxycodone/Acetaminophen (Percocet 5mg/325mg) 1 tab PO Q4H PRN PRN Reason: Pain not relieved by... Stop: 12/19/19 18:32 Prenat Multivit/[place]/Iron/Folic Ac ( Vitamin) 1 tab PO DAILY@08 [facility] Stop: 01/05/20 07:59 Last Admin: 12/06/19 07:53 Dose: 1 tab Documented by: <Shu Bains MD, FACOG - Last Filed: 12/07/19 07:29> Co-Signing Physician Notes Resident Physician Supervision Note: I was present with Dr. Dugan during the history and exam. I discussed the case with the resident and agree with the findings and plan as documented in the note. Any exceptions or clarifications are listed here: pt notes doing well with feeding, voiding, ambulating. having constipation, plans colace. having uri sx and saw her pcp recently, kids at home with n/v/d and conjuntivitis etc. asks about how to protect her baby, nursing going well. abd soft ff 2 down nt. neg calf tenderness. will d/c home, instructions reviewed. f/u 6 wk pp check. h/o depression noted, no issues now. as far as any concerns for herself with uri, rec she contact pcp Documented By: Shu Bains MD, FACOG Resident Activity Tracking <Baylee Dugan, - Last Filed: 12/07/19 06:59> Resident Involvement: Resident Care Provided Care Provided: OB Delivery
[2019-12-07] MEDS: IBUPROFEN 600 MG TAB PO PRN ×2 (07:29→11:29)
[2019-12-07] MEDS: DOCUSATE SODIUM 100 MG CAP PO SCH (07:30)
[2019-12-07] MEDS: PRENATAL VITAMIN 1 TAB PO SCH (07:30)
[2019-12-07] MEDS: AMOXICILLIN 500 MG CAP PO SCH (09:38)
== END 2019-12-07 14:01 | disposition home or self-care (01) | DRG 807 ==
LOC: 4S1 07:45 → 4S2 21:30